=== PATIENT | female | born 1955 | race Caucasian/White ===

== ENCOUNTER 2022-07-28 23:37 | Emergency (ER) | payer MEDICARE ==
[~2022-07-28] VITALS: Ht 167.6 cm; Wt 72.0 kg
[2022-07-29] MEDS ORDERED: ONDANSETRON 4MG 2ML VIAL IV ONE (00:10)
[2022-07-29] MEDS ORDERED: MORPHINE 4 MG/ML 1ML VIAL IV ONE (00:10)
[2022-07-29] MEDS ORDERED: PERCOCET 5MG/325MG TAB PO ONE (00:55)
[2022-07-29] MEDS ORDERED: OXYCODONE/APAP 5MG/325MG(HOME DOSE PACK) PO ONE (04:30)
[2022-07-29 04:41] VITALS: BP 104/59
== END 2022-07-29 04:59 | disposition home or self-care (01) ==
LOC: M ED 23:37 → EDBD 23:37 → M ED 07-29 04:59
DX: S42.001A Fracture of unspecified part of right clavicle, initial encounter for closed fracture (principal); W19.XXXA Unspecified fall, initial encounter; Y92.410 Unspecified street and highway as the place of occurrence of the external cause; Y93.01 Activity, walking, marching and hiking; Y99.8 Other external cause status; E03.9 Hypothyroidism, unspecified; K21.9 Gastro-esophageal reflux disease without esophagitis; Z88.1 Allergy status to other antibiotic agents
CPT/HCPCS: 71045; 73000; 96374; 96375; 99284; J2405